=== PATIENT | female | born 1975 | race Caucasian/White ===

== ENCOUNTER 2019-04-19 09:53 | Outpatient (CLI) | payer OTHER ==
--- NOTE | 2019-04-23 14:56 | OP Clinic Progress Note ---
DATE OF VISIT: 04/19/2019 SUBJECTIVE: Katlyn is a 43-year-old female who identifies as a male who presented to clinic today for a first visit for right plantar heel pain that had been present for three weeks without any known etiology as well as a recent right ankle sprain that happened this last Tuesday. He states that he has pain causing him to walk off the toes of the right foot. He is not able to relate whether or not there is pain first steps in the morning, but states that he just tries to do lots of up and down stretching on his toes and walks around on his toes as much as possible. With regards to the ankle sprain he went to an urgent care clinic over the weekend who took one x-ray according to him and they did not see anything and then encouraged him to put an Juvenal wrap on and go back to work. He was unhappy with that visit and would like further workup as needed today. He does not admit to any fevers, chills, nausea, vomiting, shortness of breath or chest pain. He does ask if there is a possibility of getting more custom inserts for his feet with the chronic fasciitis rather than a non-custom type of insert. He states that his insurance should cover that just fine. OBJECTIVE: Vitals: Temperature 98.3 degrees Fahrenheit, heart rate 93, respiration rate 18, blood pressure 114/77. O2 saturation is 97% on room air. Vascular: 2+ DP and PT pulses, right foot. Capillary refill time is less than 3 seconds to the toes right foot. There is moderate edema noted on the right lateral distal ankle just past the fibula. Dermatologic: There is no ecchymosis noted at this time. The patient related that there was slight ecchymosis initially over the weekend but it is not there now. The patient does not have any open lesions noted. There is hyperkeratosis noted at the right first great toe IPJ medially and the right first metatarsal head medially. These were debrided today to intact epithelium. Musculoskeletal: There is pain on palpation with direct pressure underneath the central distal calcaneus near the central band of the plantar fascia origin. There is also significant pain on palpation at the ATFL, CFL and PTFL of the right ankle. There is also some pain on palpation noted at the distal aspect of the fibula laterally on the right lower extremity. The patient has pain with plantar fascia in inversion with the stretching pain at the lateral ankle ligaments of the right ankle. The patient has limited ankle dorsiflexion which is also possibly due to guarding from the pain in the ankle. There is no obvious osseous deformity or ankle deformity in general associated with the ankle pain that he is having. Neurologic: Light touch sensation is intact to the toes, right foot. The patient does relate that there is a cold sensation in the feet, which is likely due to neuritis or something of that sort that will likely resolve with time. ASSESSMENT AND PLAN: 1. Right lateral ankle sprain. 2. Plantar fasciitis right foot. 3. Possible gastrocnemius equinus right lower extremity. A prescription for custom functional foot orthotics was given to the patient to take to [facility] by request of the patient to try and get a more custom insert for the plantar fasciitis. This will help a lot with appropriate support underneath the feet. The patient states that he will get a pair very quickly upon first visit with them rather than a few weeks like I thought. The patient was instructed in appropriate stretching exercises four times daily as well as ice to the right foot and ankle. The patient cannot do ibuprofen, but is trying Tylenol which he states is not helping at all. The patient was not doing appropriate stretches previously, but after the stretches were demonstrated he will try and do those stretches four times a day as discussed today. A prescription for a right ankle brace was also given to the patient to go nut picker at [facility] to stabilize the right lateral ankle ligaments. The patient will use that at all times in shoes and not in shoes. The patient will return to clinic in two weeks for follow up. If he is not improving we will consider a steroid injection in the right heel. It will be difficult for him to do much stretching exercises with the right ankle sprain that he has happening at the same time. I believe a steroid injection may be appropriate to try and calm down a lot of the pain in the heel while he is also healing the right ankle. Currently the plan is to be seen in the [facility] for follow up in two weeks, but we may switch that to outpatient depending on if the foot is doing any better to consider a steroid injection over in outpatient. The patient appreciated the visit and had no further questions at this time. We will see him in two weeks. Dionisio Christopher D.P.M./[employer] [id number].[id number] /mab MTDD
== END 2019-04-19 10:25 ==
LOC: POD 09:53
PROVIDERS: ATTEND Podiatrist Foot & Ankle Surgery
DX: S93.401A Sprain of unspecified ligament of right ankle, initial encounter (principal); M72.2 Plantar fascial fibromatosis; X50.9XXA Other and unspecified overexertion or strenuous movements or postures, initial encounter
CPT/HCPCS: 99203; A4554